=== PATIENT | male | born 1945 | race Caucasian/White ===

== ENCOUNTER → 2018-11-02 14:32 | Outpatient (BNVA) | payer MEDICARE, SELFPAY | PROVIDERS: Visit Provider Nurse Practitioner Gerontology | DX: N20.0 Calculus of kidney (principal) | CPT/HCPCS: 81003; 99204 ==

== ENCOUNTER 2018-11-15 08:01 | Day surgery (SDC) | payer MEDICARE, SELFPAY ==
[2018-11-15] VITALS (9 sets, daily range): BP systolic 102–152; BP diastolic 48–78; PULSE 48–77; RESP 13–18; TEMP 35.6–36.7; O2SAT 93–98
[2018-11-15] MEDS: Lactated Ringers 1,000 ML 80 ML IV (08:44)
[2018-11-15] MEDS: ceFAZolin 1 GM/50 ML BAG IVPB (10:03)
[2018-11-15] MEDS: Lidocaine 2% Jelly 6 ML SYR (10:22)
--- NOTE | 2018-11-15 11:09 | W.PM.DSUDISC ---
Discharge Plan Disposition Patient Disposition: HOME Condition: Stable Discharge Details Reason For Visit: surgery Attending Provider: Michael Baires Primary Care Provider: Juvencio José Home Meds and New Rx's Prescriptions: No Action acetaminophen-codeine 300-30 mg tablet 1 tab PO Q6H PRNRF: 0 amlodipine 5 mg tablet 5 mg PO DAILY RF: 0 clobetasol 0.05 % ointment 1 applic TP BID RF: 0 escitalopram oxalate [Lexapro] 20 mg tablet 20 mg PO DAILY RF: 0 methocarbamol 500 mg tablet 500 mg PO QID RF: 0 metoprolol succinate 25 mg tablet extended release 24 hr 25 mg PO DAILY RF: 0 multivitamin capsule 1 cap PO DAILY RF: 0 nitroglycerin [Nitrostat] 0.4 mg tablet, sublingual 0.4 mg SL Q5-15M PRNRF: 0 oxycodone 5 mg capsule 5 mg PO DAILY RF: 0 pantoprazole 40 mg tablet,delayed release (DR/EC) 40 mg PO DAILY RF: 0 trazodone 100 mg tablet 100 mg PO DAILY RF: 0 bupropion HCl [Wellbutrin SR] 150 mg tablet sustained-release 12 hr 150 mg PO DAILY RF: 0 tamsulosin [Flomax] 0.4 mg capsule 0.4 mg PO DAILY Qty: 14 RF: 0 prednisone 5 mg Tablet 5 mg PO DAILY PRNRF: 0 aspirin [Aspir-81] 81 mg Tablet,Delayed Release (Dr/Ec) 81 mg PO DAILY RF: 0 simvastatin 40 mg Tablet 40 mg PO DAILY RF: 0 Discharge Instructions Additional Instructions: stop Tamsulosin but start Finasteride 5 mg PO daily F/U @ 6 weeks with renal US at time of appt Activity:: Activity as Tolerated Shower/Bathe:: 24 hours Diet:: As Tolerated DS: Diagnosis Discharge Diagnosis (1) Kidney stone on right side: Status: Acute
[2018-11-15] MEDS: Finasteride 5 MG TAB PO (12:12)
[2018-11-15] MEDS: oxyCODONE 5 MG TAB PO (13:02)
--- NOTE | 2018-11-15 16:10 | ROE_ITS ---
DATE OF PROCEDURE: November 15, 2018 PREOPERATIVE DIAGNOSIS: Right kidney stone. POSTOPERATIVE DIAGNOSIS: Right kidney stone. PROCEDURE: Cystoscopy. SURGEON: Michael Baires M.D. ANESTHESIA: General. FINDINGS: Large intravesical portion of the prostate preventing visualization of the ureteral orific e. ESTIMATED BLOOD LOSS: Minimal. HISTORY: This is a 73-year-old gentleman who presented to the Emergency Room with right renal colic. He was identified as having a right distal ureteral stone, as well as a non-obstructing stone in th e right kidney. He has passed the distal ureteral stone, but presents now for treatment of the non-obstructing right kidney stone. OPERATIVE REPORT: The patient was brought to the Operating Room on 11/15/18. After successful induct ion of general anesthesia, he was placed in the dorsal lithotomy position. His genitalia was prepped and draped. 2% Xylocaine jelly was instilled into the urethra to act as a local anesthetic. A 22 [place] rigid cystoscope was passed through the urethra into the bladder. The urethra and bladde r were inspected with the 30-degree lens. The pendulous, bulbous and membranous urethras appeared normal with no strictures. The prostatic ure thra showed some lateral lobe enlargement, but there was a very prominent medial lobe jutting back in to the bladder. That median lobe was quite mobile and vascular. I attempted to use the beak of the scope to push the median lobe laterally and identify the ureteral orifices; but after multiple attemp ts I was unable to visualize either ureteral orifice. At that point we elected to abort the procedure. I removed the cystoscope and passed a 16 [place] Fol ey catheter through the urethra into the bladder. The catheter balloon was inflated with 10 cc's of sterile water. The catheter was hooked to gravity drainage. As long as the patient is not symptomatic, it would seem reasonable to monitor his stone and to decre ase the size of the prostate medically with Finasteride. If the patient does become symptomatic from another stone that migrates into the ureter, we would lik doretha need to do a transurethral resection of that intravesical portion of his prostate in order to acc ess the ureter. This type of procedure would require a longer recovery time, as well as at least an overnight stay in the hospital for continuous bladder irrigation. Another alternative would be to bypass the distal ureter altogether and refer him for a percutaneous nephrolithotomy and antegrade ureteroscopy, if needed. The patient tolerated this procedure well. I would expect that we will be able to remove his cathete r before his discharge once he is more awake. cc: Juvencio José M.D.
== END 2018-11-15 13:59 | disposition home or self-care (01) ==
PROVIDERS: PCP Family Medicine; Visit Provider Urology
PROC: (CPT 52000; principal; 2018-11-15 10:00)
DX: N20.0 Calculus of kidney (principal); N20.1 Calculus of ureter; N40.1 Benign prostatic hyperplasia with lower urinary tract symptoms; N13.8 Other obstructive and reflux uropathy; I10 Essential (primary) hypertension
CPT/HCPCS: 52000; J0690; J1100; J2405